=== PATIENT | female | born 2000 | race Caucasian/White ===

== ENCOUNTER 2022-02-16 10:33 | Emergency (ER) | payer OTHER, BC ==
[2022-02-16] MEDS ORDERED: Boostrix 0.5 ML (Tdap) VIAL ONE (12:00)
[2022-02-16] MEDS ORDERED: Ketorolac Tromethamine 30 MG/ML VIAL ONE (12:00)
[2022-02-16] MEDS ORDERED: Triple Antibiotic Oint 1 GM Packet ONE (12:28)
== END 2022-02-16 12:35 | disposition home or self-care (01) ==
LOC: CSHERS 10:33
DX: S50.312A Abrasion of left elbow, initial encounter (principal); S50.311A Abrasion of right elbow, initial encounter; S80.212A Abrasion, left knee, initial encounter; S80.211A Abrasion, right knee, initial encounter; V19.9XXA Pedal cyclist (driver) (passenger) injured in unspecified traffic accident, initial encounter
CPT/HCPCS: 90471; 90715; 96374; J1885